=== PATIENT | male | born 1990 | race African-American/Black ===

== ENCOUNTER 2025-05-14 11:55 | Emergency (ER) | payer OTHER ==
[~2025-05-14] VITALS: Ht 175.3 cm; Wt 72.6 kg
[2025-05-14] MEDS ORDERED: ONDANSETRON HCL/PF 4 MG/2 ML VIAL ONE (12:02)
[2025-05-14] MEDS ORDERED: FAMOTIDINE/PF INJ 20 MG/2 ML VIAL IV ONE (12:03)
[2025-05-14] MEDS: ONDANSETRON HCL/PF 4 MG/2 ML VIAL IVP ONE (12:13)
[2025-05-14] MEDS: IV NS 0.9% 1,000 ML BAG IV ONE (12:13)
[2025-05-14] MEDS: FAMOTIDINE/PF INJ 20 MG/2 ML VIAL IV ONE (12:13)
[2025-05-14 19:30] VITALS: BP 132/80; TEMP 97.6; O2SAT 99
== END 2025-05-14 19:30 | disposition home or self-care (01) ==
LOC: ER 11:58
DX: T40.411A Poisoning by fentanyl or fentanyl analogs, accidental (unintentional), initial encounter (principal); F14.10 Cocaine abuse, uncomplicated; Z79.899 Other long term (current) drug therapy; Y92.89 Other specified places as the place of occurrence of the external cause
CPT/HCPCS: 99285; 82962; J1308; J2405; J7030